=== PATIENT | female | born 1960 | race Caucasian/White ===

== ENCOUNTER → 2021-11-30 | Outpatient (CLI) | payer OTHER, SELFPAY ==
--- NOTE | 2021-11-30 09:21 | BI_ITS ---
MAMMOGRAPHY - BILATERAL DIAGNOSTIC REASON FOR EXAM: Female, 61 years old. Abnormal screening mammogram. PERTINENT HISTORY: Sisters with breast cancer. TECHNIQUE: Digital bilateral breast fidelia (3D mammographic acquisition) in the CC and MLO projections. 2-D mediolateral oblique (MLO) and craniocaudad (CC) views of both breasts were obtained. CAD: Full Field Digital Mammography with Computer Added Detection was performed. COMPARISON: Comparison is made with prior outside mammogram dated 09/23/2020. FINDINGS: Breast Composition: There are scattered areas of fibroglandular density. There are no dominant masses or suspicious calcifications. Stable 5 mm nodular density in the upper outer aspect of the left breast. Correlation with ultrasound recommended. Small bilateral axillary lymph nodes. No other significant abnormalities are identified. BI/DIAG MAMM W/CAD, BILAT IMPRESSION: Stable bilateral diagnostic mammogram. Correlation with ultrasound of the left breast is recommended. ASSESSMENT CATEGORY: BIRADS Category 0: Incomplete. Need additional imaging evaluation. A letter regarding these results will be sent to the patient by the facility within 30 days. Approximately 10% of breast cancers are not detected by mammography. A normal mammogram should not delay biopsy of a clinically suspicious abnormality. Electronically Signed: Augustin Maire MD at 10:23 EDT ,
--- NOTE | 2021-11-30 09:57 | US_ITS ---
STUDY: ULTRASOUND BREAST - LEFT REASON FOR EXAM: Female, 61 years old. Left breast mass. TECHNIQUE: Axial and longitudinal images of the LEFT breast were performed with a high resolution ultrasound transducer. # OF IMAGES: 12 COMPARISON: Comparison is made with prior mammogram done earlier in the day as well as prior outside sonogram dated 04/13/2021. FINDINGS: LEFT Breast: There is a 7 mm x 5 mm x 2 mm hypoechoic/anechoic nodular density at the 12 o''clock position in the breast at 7 cm from nipple. US/Breast Limited Unilateral IMPRESSION: Stable examination. ASSESSMENT CATEGORY: BIRADS Category 2: Benign. A letter regarding these results will be sent to the patient by the facility within 30 days. Electronically Signed: Augustin Marie MD at 10:04 EDT ,
== END | disposition home or self-care (01) ==
PROVIDERS: Visit Provider Internal Medicine
DX: R92.8 Other abnormal and inconclusive findings on diagnostic imaging of breast (principal)
CPT/HCPCS: 76642; 77062; 77066; G0279

== ENCOUNTER → 2022-11-14 | Outpatient (CLI) | payer OTHER, SELFPAY ==
[2022-11-14 15:56] LABS: NATERA MAILED SPECIMEN
== END | disposition home or self-care (01) ==
LOC: PAVLAB 14:49
PROVIDERS: PCP Internal Medicine; Referring Provider Nurse Practitioner Women's Health; Visit Provider Nurse Practitioner Women's Health
DX: Z00.00 Encounter for general adult medical examination without abnormal findings (principal); Z80.3 Family history of malignant neoplasm of breast

== ENCOUNTER → 2023-01-15 | Outpatient (CLI) | payer OTHER, SELFPAY | END | disposition home or self-care (01) | LOC: LABSPEC 11:54 | PROVIDERS: PCP Internal Medicine; Referring Provider Nurse Practitioner Women's Health; Visit Provider Nurse Practitioner Women's Health | DX: Z11.3 Encounter for screening for infections with a predominantly sexual mode of transmission (principal) | CPT/HCPCS: 87491; 87591 ==

== ENCOUNTER 2023-01-23 08:20 | Day surgery (SDC) | payer OTHER, SELFPAY ==
[2023-01-23] VITALS (7 sets, daily range): BP systolic 83–167; BP diastolic 47–73; PULSE 65–106; RESP 14–18; TEMP 36.2–36.8; O2SAT 93–100; BMI 32.3
[2023-01-23] MEDS: Lactated Ringers 1,000 ML 15 ML IV (08:44)
--- NOTE | 2023-01-23 09:00 | H&P.OPEN ---
HPI - General HPI Narrative THERESA KHAN, is a 62 F who presents for screening colonoscopy. Her last colonoscopy was 10 years ago. She reports no abdominal pain or blood in stool. She has no family history of colon cancer. [facility] Medical History (Updated 01/17/23 @ 09:30 by Gris Ramsay) Arthritis High cholesterol History of steroid therapy Hx of colonic polyps Hypercholesteremia Non-smoker Post-menopausal Wears contact lenses Wears glasses Home Medications aspirin 81 mg tablet,delayed release (Adult Aspirin Regimen) 81 mg PO DAILY 11/14/22 [History Last Taken Unknown] atorvastatin 20 mg tablet 20 mg PO DAILY 11/14/22 [History Last Taken Unknown] multivitamin 1 tab PO DAILY 11/14/22 [History Last Taken Unknown] collagen, hydrolyzed 1 gram-ascorbate calcium 10 mg tablet 1 tab PO DAILY 01/16/23 [History Last Taken Unknown] omega 3-mdq-lpv-fish oil 300 mg-1,000 mg capsule (Fish Oil) 1 cap PO DAILY 01/16/23 [History Last Taken Unknown] turmeric 400 mg capsule 400 mg PO DAILY 01/16/23 [History Last Taken Unknown] cholecalciferol (vitamin D3) 50 mcg (2,000 unit) capsule (Vitamin D3) 50 mcg PO DAILY 01/17/23 [History Last Taken Unknown] magnesium 250 mg tablet 250 mg PO DAILY 01/17/23 [History Last Taken Unknown] vitamin B complex 1 cap PO DAILY 01/17/23 [History Last Taken Unknown] zinc 50 mg capsule 50 mg PO DAILY 01/17/23 [History Last Taken Unknown] Allergy/AdvReac Type Severity Reaction Status Date / Time No Known Allergies Allergy Verified 01/17/23 09:23 Family History (Updated 01/16/23 @ 10:45 by Mirlande Pacheco) Sister Breast cancer, Onset Age: 50 Sister Breast cancer Unknown , Cousin at 38 yrs. + Conklin syndrome. 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[place] Smoking Status: Never smoker alcohol intake: current alcohol intake frequency: holidays/special occasions only substance use type: does not use seatbelt use: always do you feel safe at home: Yes additional social history: - [employer] Past Medical/Surgical History Planned Operation Planned Operative Procedure/s: COLONOSCOPY-OA Previous Hospitalizations/Surgeries HX Hospitalizations: No Any Problems With Anesthesia: No You/Your Family Experience Fever (Hyperthermia) With Anes: No Cholinesterase deficiency: No Cardiovascular Hx Hypertension: No Respiratory Hx Sleep Apnea: No Hx Respiratory Tract Infection/Cold (presently): No Do You Snore Loudly (louder than talking or can be heard): No Do You Often Feel Tired/ Fatigued/ Sleepy Dring Daytime?: No Has Anyone Observed You Stop Breathing During Sleep?: No Result (for STOP score): Negative Smoking Status: Never smoker Neurological Does patient have nerve stimulator: No Reproduction : No Miscellaneous Recent Exposure to Contagious Disease: No Allergies No Known Allergies Allergy (Verified 01/17/23 09:23) Discharge Is Pt Admitted From a Intermediate, or a Skilled Nursing: No After D/C, Where Do you Plan to Go: Return Home Vital Signs Vital Signs Vital Signs: 01/23/23 08:45 01/23/23 08:45 Temperature 97.7 F L Temperature Source Temporal Pulse Rate 106 H Respiratory Rate 18 Respiratory Pattern Normal Blood Pressure 167/73 H Blood Pressure Mean 104 Blood Pressure Source Monitor Blood Pressure Position Semi-Fowlers Blood Pressure Location Right Arm Pulse Ox 100 Oxygen Delivery Method Room Air Weight Weight: 200 lb Body Mass Index (BMI) 32.3 Physical Exam Const alert and oriented x3 HEENT normocephalic Eyes PERRL Resp normal respiratory effort and normal air movement Cardio regular rate and regular rhythm GI soft to palpation, non-tender and non-distended Extremity normal to inspection Assessment & Plan Assessment/Plan (1) Encounter for screening for malignant neoplasm of colon: PLAN: I explained endoscopy in detail to the patient. I explained the risks including but not limited to stroke or heart attack with anesthesia, perforation of the GI tract, bleeding, infection. I explained that any of these could necessitate further emergency surgery. The patient understands and all questions were answered sufficiently. The patient wishes to proceed with procedure. 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 I recommend the patient have colonoscopies every 2 years regardless of findings. Familia Mason MD Pager: [facility] [address] [place] [address] [address] [place] [address] Office: Surgery Risks - Colonoscopy Risks Include but are not Limited To: Risks include but are not limited to: Bleeding, perforation requiring further surgery, inability to complete colonoscopy requiring barium enema.
--- NOTE | 2023-01-23 09:15 | COLBX_PTH ---
PATIENT: THERESA KHAN LOC: EN U#:[id number] AGE/SX: 62/F ROOM: RE01/23/[address]: Dr. Familia Mason MD : 1960 BED: DIS: 01/23/2023 SPEC #: [id number] RECD: 01/23/23 14:18 STATUS: VENUS DAVIS #: [id number] HILL: 01/23/23 09:[address]: Familia Mason DEPT: SURGICAL PATHOLOGY RECD BY: Kati Blanco ENTERED: 01/24/23 08:28 SP TYPE: COLON BX OTHR DR: Dr. Margaret Cowan MD Tissues: Rectum, NOS Procedures: Surgery Specimen Level IV HEADER OPERATION: Colonoscopy - open access with polypectomy PRE-OP DIAGNOSIS: Screening TISSUE SUBMITTED: Rectal polyp MICROSCOPIC DIAGNOSIS Rectal polyp, polypectomy: Serrated adenoma with focal features of tubular adenoma. SJ:luly 01/25/2023 MICROSCOPIC DESCRIPTION Slides are reviewed. GROSS DESCRIPTION Received in fixative is one container labeled with the patient's name and designated rectal polyp. The specimen consists of one irregular fragment of light gooden soft tissue that measures 1.0 x 1.0 x 0.3 cm. The specimen is bisected and totally submitted in one cassette. / AM:luly 01/24/2023 TC:5 CPT: 55285
--- NOTE | 2023-01-23 09:37 | OP.CCLET_ITS ---
01/23/2023 [facility] Re : Colonoscopy procedure for Shweta Baxter Dear This procedure was performed on Monday, January 23, 2023. My impressions and recommendations are as follows: Impressions : - One large polyp in the rectum, removed with a hot snare. Resected and retrieved. - The examination was otherwise normal on direct and retroflexion views. Recommendations : - Discharge patient to home. - Resume previous diet. - Continue present medications. - Await pathology results. - Repeat colonoscopy in 2 years for surveillance. My findings are described in the full procedure note, which is enclosed. If I can be of further assistance, please feel free to contact me at Doctor phone number(s): , Work: . Sincerely, Familia Mason MD 01/23/2023 9:36:23 AM This report has been signed electronically.
--- NOTE | 2023-01-23 09:37 | OP.COLON_ITS ---
Patient Name: Shweta Baxter Procedure Date: 01/23/2023 9:03 AM Date of : 1960 Age: 62 Procedure: Colonoscopy Indications: Conklin Syndrome Providers: Familia Mason MD Referring MD: Margaret Cowan Medicines: Monitored Anesthesia Care Patient Profile: This is a 62 year old female. Refer to note in patient chart for documentation of history and physical. Last Colonoscopy: 10 years ago. Complications: No immediate complications. Procedure: Pre-Anesthesia Assessment: - Prior to the procedure, a History and Physical was performed, and patient medications and allergies were reviewed. The patient's tolerance of previous anesthesia was also reviewed. The risks and benefits of the procedure and the sedation options and risks were discussed with the patient. All questions were answered, and informed consent was obtained. Prior Anticoagulants: The patient has taken no anticoagulant or antiplatelet agents. After reviewing the risks and benefits, the patient was deemed in satisfactory condition to undergo the procedure. After I obtained informed consent, the scope was passed under direct vision. Throughout the procedure, the patient's blood pressure, pulse, and oxygen saturations were monitored continuously. The Colonoscope was introduced through the anus and advanced to the cecum, identified by appendiceal orifice and ileocecal valve. The colonoscopy was performed without difficulty. The patient tolerated the procedure well. The quality of the bowel preparation was good. The ileocecal valve, appendiceal orifice, and rectum were photographed. Scope In: 9:18:33 AM Scope Withdrawal Time 0 hours 5 minutes 30 seconds Scope Out: 9:27:19 AM Total Procedure Duration Time 0 hours 8 minutes 46 seconds Findings: A large polyp was found in the rectum. The polyp was pedunculated. The polyp was removed with a hot snare. Resection and retrieval were complete. Verification of patient identification for the specimen was done. Estimated blood loss was minimal. The exam was otherwise without abnormality on direct and retroflexion views. Impression: - One large polyp in the rectum, removed with a hot snare. Resected and retrieved. - The examination was otherwise normal on direct and retroflexion views. Recommendation: - Discharge patient to home. - Resume previous diet. - Continue present medications. - Await pathology results. - Repeat colonoscopy in 2 years for surveillance. Procedure Code(s): --- Professional --- 13937, Colonoscopy, flexible; with removal of tumor(s), polyp(s), or other lesion(s) by snare technique Diagnosis Code(s): --- Professional --- D12.8, Benign neoplasm of rectum Z15.09, Genetic susceptibility to other malignant neoplasm CPT copyright 2021 [employer]. All rights reserved. The codes documented in this report are preliminary and upon admitting counselor review may be revised to meet current compliance requirements. Familia Mason MD 01/23/2023 9:36:23 AM This report has been signed electronically. Number of Addenda: 0 Note Initiated On: 01/23/2023 9:03 AM
== END 2023-01-23 10:10 | disposition home or self-care (01) ==
LOC: EN 08:22 → AC 08:23
PROVIDERS: PCP Internal Medicine; Referring Provider Internal Medicine; Visit Provider Surgery
PROC: 0DJD8ZZ Inspection of Lower Intestinal Tract, Via Natural or Artificial Opening Endoscopic (ICD-10-PCS; CPT 45378; principal; 2023-01-23 09:10)
DX: Z12.11 Encounter for screening for malignant neoplasm of colon (principal); E78.00 Pure hypercholesterolemia, unspecified; Z79.899 Other long term (current) drug therapy; Z79.82 Long term (current) use of aspirin; Z86.010 Personal history of colon polyps; D12.8 Benign neoplasm of rectum
CPT/HCPCS: 45385; 88305; J7120; J2405

== ENCOUNTER → 2023-01-29 | Outpatient (CLI) | payer OTHER, SELFPAY ==
--- NOTE | 2023-01-29 10:01 | BI_ITS ---
MAMMOGRAPHY - BILATERAL SCREENING REASON FOR EXAM: Female, 62 years old. Routine annual screening examination. PERTINENT HISTORY: Sisters with breast cancer. TECHNIQUE: Digital bilateral breast sury (3D mammographic acquisition) in the CC and MLO projections. 2-D mediolateral oblique (MLO) and craniocaudad (CC) views of both breasts were obtained. CAD: Full Field Digital Mammography with Computer Added Detection was performed. COMPARISON: Comparison is made with prior study dated November 30, 2021 and September 23, 2020. FINDINGS: Breast Composition: There are scattered areas of fibroglandular density. There are no dominant masses or suspicious calcifications. Stable small benign-appearing bilateral axillary lymph nodes. No other significant abnormalities are identified. There has been no significant change since the prior study. BI/SCRN MAMM (CAD)W/SURY BILAT IMPRESSION: Stable bilateral screening mammogram. Yearly follow-up mammogram recommended. (A) ASSESSMENT CATEGORY: BIRADS Category 2: Benign. A letter regarding these results will be sent to the patient by the facility within 30 days. Approximately 10% of breast cancers are not detected by mammography. A normal mammogram should not delay biopsy of a clinically suspicious abnormality. [id number] Electronically Signed: Augustin Marie MD at 13:55 EDT ,
== END | disposition home or self-care (01) ==
LOC: OPBI 10:00
PROVIDERS: PCP Internal Medicine; Referring Provider Nurse Practitioner Women's Health; Visit Provider Nurse Practitioner Women's Health
DX: Z12.31 Encounter for screening mammogram for malignant neoplasm of breast (principal)
CPT/HCPCS: 77063; 77067

== ENCOUNTER → 2024-07-15 | Outpatient (CLI) | payer OTHER, SELFPAY ==
--- NOTE | 2024-07-15 10:45 | BI_ITS ---
PROCEDURE: SCRN MAMM (CAD)W/SURY BILAT REASON FOR EXAM: F, Age 64 y/o , SCREENING FOR BREAST CANCER. Family history of breast cancer in 2 sisters. TECHNIQUE: Bilateral screening digital breast tomosynthesis with 2D and 3D images. Computer aided detection. COMPARISON: 01/29/2023 FINDINGS: There are scattered areas of fibroglandular density. No suspicious masses, areas of developing architectural distortion, or suspicious calcifications. BI/SCRN MAMM (CAD)W/SURY BILAT IMPRESSION: There is no mammographic evidence of malignancy. BI-RADS 1: NEGATIVE. RECOMMEND ANNUAL MAMMOGRAPHIC SCREENING. Follow-up code: Routine Follow-up The patient will be notified of the results by letter. Reading Location: [id number]
== END | disposition home or self-care (01) ==
LOC: OPBI 10:55
PROVIDERS: PCP Internal Medicine; Referring Provider Nurse Practitioner Women's Health; Visit Provider Nurse Practitioner Women's Health
DX: Z12.31 Encounter for screening mammogram for malignant neoplasm of breast (principal)
CPT/HCPCS: 77063; 77067